=== PATIENT | female | born 1975 | race Caucasian/White ===

== ENCOUNTER 2017-09-28 11:58 | Day surgery (SDC) | payer OTHER ==
[2017-09-28] MEDS ORDERED: Sodium Chloride 0.9% 20 ML ONE (12:27)
[2017-09-28 19:26] VITALS: BP 118/65; TEMP 98.1
== END 2017-09-28 19:25 | disposition home or self-care (01) ==
LOC: ONC/OP 11:58
PROVIDERS: ATTEND Family Medicine
PROC: 30233N1 Transfusion of Nonautologous Red Blood Cells into Peripheral Vein, Percutaneous Approach (ICD-10-PCS; principal; 2017-09-28)
DX: D50.9 Iron deficiency anemia, unspecified (principal)
CPT/HCPCS: 36415; 36430; 86850; 86900; 86901; A4216; P9016